=== PATIENT | female | born 1975 | race Caucasian/White ===

== ENCOUNTER → 2023-06-25 15:37 | Outpatient (REF) | payer OTHER, SELFPAY | LOC: WDC 15:37 | PROVIDERS: ATTENDING PHYSICIAN Family Medicine | DX: Z12.31 Encounter for screening mammogram for malignant neoplasm of breast (principal) | CPT/HCPCS: 77063; 77067 ==

== ENCOUNTER → 2024-07-15 09:00 | Outpatient (REF) | payer OTHER, SELFPAY | LOC: HWRAD 09:00 | PROVIDERS: ATTENDING PHYSICIAN Family Medicine | DX: J18.9 Pneumonia, unspecified organism (principal) | CPT/HCPCS: 71250 ==

== ENCOUNTER → 2024-08-05 15:01 | Outpatient (REF) | payer OTHER, SELFPAY | LOC: WDC 15:01 | PROVIDERS: ATTENDING PHYSICIAN Family Medicine | DX: Z12.31 Encounter for screening mammogram for malignant neoplasm of breast (principal) | CPT/HCPCS: 77063; 77067 ==